=== PATIENT | female | born 1980 | race Caucasian/White ===

== ENCOUNTER 2017-06-05 08:48 | Emergency (ER) | payer OTHER ==
[~2017-06-05] VITALS: Ht 167.6 cm; Wt 102.1 kg
[~2017-06-05 08:48] MED LIST: Bactroban22 GM TOP; CYCL10 PO; ERYT333ERA PO; HYDACE5 PO; HYDACE5325 PO; RXCYCL10 PO; RXHYD5325 PO; RXHYDACE PO; Triamcinolone A15 GM TOP
[2017-06-05 10:05] LABS: Calcium, Ionized (POC) 1.16 mmol/L (1.10-1.46); Chloride (POC) 104 mmol/L (98-108); Creatinine (POC) 0.7 mg/dL (0.6-1.0); Glucose (ISTAT POC) 105 mg/dL (70-99); Hemoglobin (POC) 13.9 g/dL (12.0-16.0); Potassium (POC) 3.7 mmol/L (3.5-5.5); Sodium (POC) 141 mmol/L (135-148); Total CO2 (POC) 24 mmol/L (21-32)
[2017-06-05] MEDS ORDERED: HYDR1TAB94 (10:08)
[2017-12-09] MEDS ORDERED: NEXPLANON68 MG SC (10:14)
[2017-12-09] MEDS ORDERED: LEVSOD150 PO (10:14)
[2017-12-09] MEDS ORDERED: Sudogest60 MG PO (10:15)
[2017-12-09] MEDS ORDERED: Cyclobenzaprine5 MG PO (10:15)
[2017-12-09] MEDS ORDERED: Omeprazole20 M1 PO (10:16)
[2017-12-09] MEDS ORDERED: Zofran4 MG PO (10:16)
[2017-12-09] MEDS ORDERED: VITAMIN D34000 UNIT PO (10:17)
== END 2017-06-05 11:05 | disposition home or self-care (01) ==
LOC: ER 08:48
PROVIDERS: Emergency Medicine
DX: R00.2 Palpitations (principal); F17.200 Nicotine dependence, unspecified, uncomplicated; Z88.0 Allergy status to penicillin
CPT/HCPCS: 36415; 80047; 81000; 81025; 85014; 93005; 93010; 96360; 99283; J7030

== ENCOUNTER 2017-07-05 17:16 | Emergency (ER) | payer OTHER ==
[~2017-07-05] VITALS: Ht 167.6 cm; Wt 113.4 kg
[~2017-07-05 17:16] MED LIST changes: +HYDR1TAB94
[2017-07-05] MEDS ORDERED: THYROID MED (17:41)
[2017-07-05] MEDS ORDERED: CYCL10 PO (18:04)
== END 2017-07-05 18:13 | disposition home or self-care (01) ==
LOC: ER 17:16
DX: M54.5 Low back pain (principal); Z88.0 Allergy status to penicillin; E03.9 Hypothyroidism, unspecified; F17.210 Nicotine dependence, cigarettes, uncomplicated; Z79.899 Other long term (current) drug therapy
CPT/HCPCS: 96372; 99283; J1885

== ENCOUNTER 2017-11-14 22:50 | Emergency (ER) | payer OTHER ==
[~2017-11-14] VITALS: Ht 167.6 cm; Wt 115.7 kg
[~2017-11-14 22:50] MED LIST changes: +THYROID MED
[2017-11-14] MEDS ORDERED: CENTRUM ADULTS1 EACH (23:00)
[2017-11-14] MEDS ORDERED: ASPI81CH PO (23:35)
[2017-11-14] MEDS ORDERED: ERGO400 PO (23:35)
[2017-11-14] MEDS ORDERED: B Complex #11 EACH PO (23:35)
[2017-11-15 00:39] LABS: BASOPHILS ABSOLUTE AUTO 0.08 K/mm3 (0.00-0.23); BASOPHILS PERCENT AUTO 0 % (0-2); EOSINOPHILS ABSOLUTE AUTO 0.36 K/mm3 (0.00-0.68); EOSINOPHILS PERCENT AUTO 2 % (0-6); Hematocrit 40.1 % (33.0-51.0); Hemoglobin 13.4 g/dL (11.5-16.0); IMMATURE GRAN PERCENT AUTO 1 % (0-1); LYMPHOCYTES ABSOLUTE AUTO 4.49 K/mm3 (0.84-5.20); LYMPHOCYTES PERCENT AUTO 25 % (21-46); MONOCYTES ABSOLUTE AUTO 0.88 K/mm3 (0.16-1.47); MONOCYTES PERCENT AUTO 5 % (4-13); Mean Corpuscular HGB 30.1 pg (26.0-34.0); Mean Corpuscular HGB Conc 33.4 g/dL (31.5-36.5); Mean Corpuscular Volume 90 fL (80-100); Mean Platelet Volume 10.3 fL (9.1-12.4); NEUTROPHILS ABSOLUTE AUTO 11.98 K/mm3 (1.96-9.15); NEUTROPHILS PERCENT AUTO 67 % (41-73); Platelet Count 371 K/mm3 (150-400); RDW Coefficient Variation 13.3 % (11.7-14.2); RDW Standard Deviation 43.9 fL (35.1-46.3); Red Blood Cell Count 4.45 M/mm3 (3.80-5.20); White Blood Cell Count 17.89 K/mm3 (4.00-11.30)
[2017-11-15 00:57] LABS: Alanine Aminotransfer (ALT/SGP 54 U/L (12-78); Albumin, Blood 3.2 g/dL (3.4-5.0); Albumin/Globulin Ratio 0.7 (0.8-1.8); Alk Phos 64 U/L (50-136); Anion Gap 9 mmol/L (6-16); Aspartate Aminotrans (AST/SGOT 39 U/L (12-37); Bilirubin, Total 0.4 mg/dL (0.1-1.0); Blood Urea Nitrogen 9 mg/dL (8-24); Bun/Creatinine Ratio 11.3 (12.0-20.0); CO2, Blood 26 mmol/L (21-32); Calcium, Blood 8.7 mg/dL (8.5-10.1); Chloride, Blood 105 mmol/L (98-108); Globulin, Blood 4.5 g/dL (2.2-4.0); Glomerular Filtration Rate >60 (60-); Glucose, Blood 79 mg/dL (70-99); Potassium, Blood 3.7 mmol/L (3.5-5.5); Sodium, Blood 140 mmol/L (136-145); Total Protein, Blood 7.7 g/dL (6.4-8.2)
[2017-11-15 01:50] LABS: Source, Urine Clean Catch
[2017-11-15 01:53] LABS: Bilirubin, Urine Neg (Neg); Blood, Urine 2+ (Neg); Glucose Qualitative, Urine Neg (Neg); Ketones, Urine Neg (Neg); Leukocyte Esterase, Urine 1+ (Neg); Nitrite, Urine Neg (Neg); Protein, Urine Neg (Neg); Urobilinogen, Urine NORM (Normal)
[2017-11-15 01:57] LABS: Appearance, Urine Hazy (Clear); Color, Urine Yellow (P-Yellow)
[2017-11-15 02:08] LABS: Amorphous Light (0-Heavy); Bacteria Rare /hpf; Red Blood Cells, Urine 0-2 /hpf (0-2); Squamous Epithelial Cells Few /hpf (Few); White Blood Cells, Urine 0-2 /hpf (0-5)
[2017-11-15] MEDS ORDERED: IBUP400 PO (05:26)
[2017-11-15] MEDS ORDERED: HYDR1TAB94 PO (05:26)
== END 2017-11-15 05:40 | disposition home or self-care (01) ==
LOC: ER 22:50
PROVIDERS: Emergency Medicine
DX: R10.9 Unspecified abdominal pain (principal); Z88.0 Allergy status to penicillin; Z79.899 Other long term (current) drug therapy; Z79.82 Long term (current) use of aspirin; F17.200 Nicotine dependence, unspecified, uncomplicated
CPT/HCPCS: 36415; 71046; 74177; 80053; 81001; 81025; 83690; 85025; 87086; 99284-25; Q9967

== ENCOUNTER → 2017-11-16 | Outpatient (CLI) | payer OTHER ==
[~2017-11-16] MED LIST changes: +ASPI81CH PO; +B Complex #11 EACH PO; +CENTRUM ADULTS1 EACH; +ERGO400 PO; +HYDR1TAB94 PO; +IBUP400 PO
== END ==
LOC: LAB SHORT 12:30 → LAB 12:30
DX: K92.1 Melena (principal); R10.9 Unspecified abdominal pain
CPT/HCPCS: 87338

== ENCOUNTER 2017-12-17 12:56 | Day surgery (SDC) | payer OTHER ==
[~2017-12-17] VITALS: Ht 167.6 cm; Wt 120.0 kg
[~2017-12-17 12:56] MED LIST changes: +Cyclobenzaprine5 MG PO; +LEVSOD150 PO; +NEXPLANON68 MG SC; +Omeprazole20 M1 PO; +Sudogest60 MG PO; +VITAMIN D34000 UNIT PO; +Zofran4 MG PO
== END 2017-12-17 15:37 | disposition home or self-care (01) ==
LOC: ORSCSDS 12:56
PROVIDERS: Student in an Organized Health Care Education/Training Program
PROC: 0DBB8ZX Excision of Ileum, Via Natural or Artificial Opening Endoscopic, Diagnostic (ICD-10-PCS; principal; 2017-12-17 14:30)
PROC: 0DB68ZX Excision of Stomach, Via Natural or Artificial Opening Endoscopic, Diagnostic (ICD-10-PCS; principal; 2017-12-17 14:30)
PROC: 0DBE8ZX Excision of Large Intestine, Via Natural or Artificial Opening Endoscopic, Diagnostic (ICD-10-PCS; principal; 2017-12-17 14:30)
PROC: 0DB98ZX Excision of Duodenum, Via Natural or Artificial Opening Endoscopic, Diagnostic (ICD-10-PCS; principal; 2017-12-17 14:30)
DX: K92.1 Melena (principal); K29.70 Gastritis, unspecified, without bleeding; R19.4 Change in bowel habit; R10.9 Unspecified abdominal pain; R11.0 Nausea; E03.9 Hypothyroidism, unspecified; F17.210 Nicotine dependence, cigarettes, uncomplicated; E66.9 Obesity, unspecified; Z68.41 Body mass index [BMI] 40.0-44.9, adult; Z79.899 Other long term (current) drug therapy
CPT/HCPCS: 88305; 88342; J7120

== ENCOUNTER 2019-01-13 17:22 | Emergency (ER) | payer OTHER ==
[~2019-01-13] VITALS: Ht 167.6 cm; Wt 117.5 kg
== END 2019-01-13 18:54 | disposition home or self-care (01) ==
LOC: ER 17:22
DX: S93.401A Sprain of unspecified ligament of right ankle, initial encounter (principal); S60.512A Abrasion of left hand, initial encounter; M25.532 Pain in left wrist; R03.0 Elevated blood-pressure reading, without diagnosis of hypertension; K21.9 Gastro-esophageal reflux disease without esophagitis; E03.9 Hypothyroidism, unspecified; F17.200 Nicotine dependence, unspecified, uncomplicated; Z88.0 Allergy status to penicillin; Z79.899 Other long term (current) drug therapy; W10.8XXA Fall (on) (from) other stairs and steps, initial encounter
CPT/HCPCS: 73110; 73610; 99283-25

== ENCOUNTER 2020-02-11 19:53 | Emergency (ER) | payer OTHER ==
[~2020-02-11] VITALS: Ht 167.6 cm; Wt 126.5 kg
[~2020-02-11 19:53] MED LIST changes: +OMEPRAZOLE MAGN20 MG PO; +ONDA4ODT SL; +Synthroid200 MCG PO
== END 2020-02-11 22:37 | disposition home or self-care (01) ==
LOC: ER 19:53
DX: S89.92XA Unspecified injury of left lower leg, initial encounter (principal); E03.9 Hypothyroidism, unspecified; K21.9 Gastro-esophageal reflux disease without esophagitis; F17.210 Nicotine dependence, cigarettes, uncomplicated; Z88.0 Allergy status to penicillin; Z79.3 Long term (current) use of hormonal contraceptives; Z79.899 Other long term (current) drug therapy; X58.XXXA Exposure to other specified factors, initial encounter; Y93.89 Activity, other specified
CPT/HCPCS: 73562-LT; 99283-25

== ENCOUNTER 2020-07-12 19:57 | Emergency (ER) | payer OTHER ==
[~2020-07-12] VITALS: Ht 167.6 cm; Wt 122.5 kg
[2020-07-12] MEDS ORDERED: CEPH500 PO (20:52)
== END 2020-07-12 21:00 | disposition home or self-care (01) ==
LOC: ER 19:57
DX: S61.032A Puncture wound without foreign body of left thumb without damage to nail, initial encounter (principal); E03.9 Hypothyroidism, unspecified; K21.9 Gastro-esophageal reflux disease without esophagitis; F17.210 Nicotine dependence, cigarettes, uncomplicated; Z88.0 Allergy status to penicillin; Z79.3 Long term (current) use of hormonal contraceptives; Z79.899 Other long term (current) drug therapy; W26.0XXA Contact with knife, initial encounter
CPT/HCPCS: 99283; A9270-GY

== ENCOUNTER 2021-03-06 15:01 | Emergency (ER) | payer OTHER ==
[~2021-03-06] VITALS: Ht 167.6 cm; Wt 124.7 kg
[~2021-03-06 15:01] MED LIST changes: +CEPH500 PO
[2021-03-06] MEDS ORDERED: Amitriptyline H10 MG PO (15:12)
== END 2021-03-06 16:00 | disposition home or self-care (01) ==
LOC: ER 15:01
DX: M54.42 Lumbago with sciatica, left side (principal); F17.210 Nicotine dependence, cigarettes, uncomplicated; Z88.0 Allergy status to penicillin
CPT/HCPCS: 96372; 99283-25; A9270; J1885

== ENCOUNTER 2021-07-27 19:30 | Emergency (ER) | payer OTHER ==
[~2021-07-27] VITALS: Ht 167.6 cm; Wt 128.4 kg
[~2021-07-27 19:30] MED LIST changes: +Amitriptyline H10 MG PO
[2021-07-27] MEDS ORDERED: CIPHYDOTSU LEFTEAR (19:59)
== END 2021-07-27 20:16 | disposition home or self-care (01) ==
LOC: ER 19:30
DX: H60.92 Unspecified otitis externa, left ear (principal); F17.210 Nicotine dependence, cigarettes, uncomplicated
CPT/HCPCS: 99282; A9270

== ENCOUNTER → 2021-10-03 | Outpatient (CLI) | payer OTHER ==
[~2021-10-03] MED LIST changes: +CIPHYDOTSU LEFTEAR
[2021-10-08 15:08] LABS: HPV 16 Negative (Negative); HPV 18 Negative (Negative); HPV OTHER HR TYPES Negative (Negative)
== END | disposition home or self-care (01) ==
LOC: LAB 12:35 → LAB SHORT 12:35
PROVIDERS: Obstetrics & Gynecology
DX: Z12.4 Encounter for screening for malignant neoplasm of cervix (principal)
CPT/HCPCS: 87624; G0123

== ENCOUNTER 2021-11-11 06:54 | Day surgery (SDC) | payer OTHER ==
[~2021-11-11] VITALS: Ht 167.6 cm; Wt 124.8 kg
[2021-11-11] MEDS ORDERED: NAPR500 PO (08:02)
[2021-11-11] MEDS ORDERED: Cyclobenzaprine5 MG PO (08:03)
--- NOTE | 2021-11-11 09:16 | NUR ---
11/11/21 0916 Bubba Kaye ABDOMEN PREPPED WITH DURAPREP BY [facility].JJW 0.1ML OF EPI 1MG/ML ADDED TO 20ML OF ROPIVICAINE 0.2% TO CREATE A SOLUTION OF ROPIVICAINE 0.2% WITH EPI 1:200,000.
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
== END 2021-11-11 10:45 | disposition home or self-care (01) ==
LOC: ORSCSDS 06:54
PROVIDERS: Obstetrics & Gynecology
PROC: 0UT74ZZ Resection of Bilateral Fallopian Tubes, Percutaneous Endoscopic Approach (ICD-10-PCS; principal; 2021-11-11 08:30)
PROC: 0TBB4ZZ Excision of Bladder, Percutaneous Endoscopic Approach (ICD-10-PCS; principal; 2021-11-11 08:30)
DX: Z30.2 Encounter for sterilization (principal); N83.202 Unspecified ovarian cyst, left side; G47.33 Obstructive sleep apnea (adult) (pediatric); F17.210 Nicotine dependence, cigarettes, uncomplicated; E66.01 Morbid (severe) obesity due to excess calories; Z68.41 Body mass index [BMI] 40.0-44.9, adult; E03.9 Hypothyroidism, unspecified; F32.A Depression, unspecified; Z79.899 Other long term (current) drug therapy
CPT/HCPCS: 88302; A9270; J0171; J1100; J2405; J2704; J2710; J2765; J2795; J3010

== ENCOUNTER 2021-11-20 17:04 | Emergency (ER) | payer OTHER ==
[~2021-11-20] VITALS: Ht 167.6 cm; Wt 124.7 kg
[~2021-11-20 17:04] MED LIST changes: +NAPR500 PO
== END 2021-11-20 21:03 | disposition left against medical advice (07) ==
LOC: ER 17:04
DX: R51.9 Headache, unspecified (principal); R50.9 Fever, unspecified; Z53.21 Procedure and treatment not carried out due to patient leaving prior to being seen by health care provider
CPT/HCPCS: 99281

== ENCOUNTER 2022-05-15 16:51 | Emergency (ER) | payer OTHER ==
[~2022-05-15] VITALS: Ht 167.6 cm; Wt 126.1 kg
[2022-05-15] MEDS ORDERED: PERCOCET 10-321 EA10 PO (20:17)
[2022-05-15] MEDS ORDERED: ONDA4ODT MM (20:17)
[2022-05-15] MEDS ORDERED: Cleocin HCl150 MG PO (20:19)
== END 2022-05-15 20:23 | disposition home or self-care (01) ==
LOC: ER 16:51
DX: K08.89 Other specified disorders of teeth and supporting structures (principal); E03.9 Hypothyroidism, unspecified; F17.210 Nicotine dependence, cigarettes, uncomplicated; Z88.0 Allergy status to penicillin; Z79.899 Other long term (current) drug therapy
CPT/HCPCS: 99282; A9270

== ENCOUNTER 2022-06-11 04:05 | Emergency (ER) | payer OTHER ==
[~2022-06-11] VITALS: Ht 167.6 cm; Wt 126.1 kg
[~2022-06-11 04:05] MED LIST changes: +Cleocin HCl150 MG PO; +ONDA4ODT MM; +PERCOCET 10-321 EA10 PO
[2022-06-11 07:23] LABS: Albumin, Blood 3.3 g/dL (3.4-5.0); Albumin/Globulin Ratio 0.7 (0.8-1.8); Bilirubin, Total 0.4 mg/dL (0.1-1.0); Bun/Creatinine Ratio 12.1 (12.0-20.0); Creatinine, Blood 0.75 mg/dL (0.40-1.00); Globulin, Blood 4.5 g/dL (2.2-4.0); Total Protein, Blood 7.8 g/dL (6.4-8.2)
[2022-06-11 08:11] LABS: BASOPHILS ABSOLUTE AUTO 0.09 K/mm3 (0.00-0.23); BASOPHILS PERCENT AUTO 1 % (0-2); EOSINOPHILS ABSOLUTE AUTO 0.55 K/mm3 (0.00-0.68); EOSINOPHILS PERCENT AUTO 4 % (0-6); Hematocrit 38.4 % (33.0-51.0); Hemoglobin 12.5 g/dL (11.5-16.0); IMMATURE GRAN ABSOLUTE AUTO 0.08 K/mm3 (0.00-0.10); IMMATURE GRAN PERCENT AUTO 1 % (0-1); LYMPHOCYTES ABSOLUTE AUTO 4.36 K/mm3 (0.84-5.20); LYMPHOCYTES PERCENT AUTO 31 % (21-46); MONOCYTES ABSOLUTE AUTO 0.83 K/mm3 (0.16-1.47); MONOCYTES PERCENT AUTO 6 % (4-13); Mean Corpuscular HGB 30.7 pg (26.0-34.0); Mean Corpuscular HGB Conc 32.6 g/dL (31.5-36.5); Mean Corpuscular Volume 94 fL (80-100); Mean Platelet Volume 10.1 fL (9.1-12.4); NEUTROPHILS ABSOLUTE AUTO 7.98 K/mm3 (1.96-9.15); NEUTROPHILS PERCENT AUTO 57 % (41-73); Platelet Count 341 K/mm3 (150-400); RDW Coefficient Variation 13.2 % (11.7-14.2); RDW Standard Deviation 45.4 fL (35.1-46.3); Red Blood Cell Count 4.07 M/mm3 (3.80-5.20); White Blood Cell Count 13.89 K/mm3 (4.00-11.30)
[2022-06-11 08:21] LABS: Source, Urine Clean Catch
[2022-06-11 08:24] LABS: Appearance, Urine Hazy (Clear); Bilirubin, Urine Neg (Neg); Blood, Urine 4+ (Neg); Color, Urine Yellow (P-Yellow); Glucose Qualitative, Urine Neg (Neg); Ketones, Urine Neg (Neg); Leukocyte Esterase, Urine 3+ (Neg); Nitrite, Urine Pos (Neg); Protein, Urine 2+ (Neg); Urobilinogen, Urine NORM (Normal)
[2022-06-11 08:51] LABS: Bacteria Mod /hpf; Squamous Epithelial Cells Rare /hpf (Few)
[2022-06-11] MEDS ORDERED: IBUP800 PO (09:04)
[2022-06-11] MEDS ORDERED: Macrobid 100 M100 MG PO (09:04)
== END 2022-06-11 09:31 | disposition home or self-care (01) ==
LOC: ER 04:05
PROVIDERS: Emergency Medicine; Student in an Organized Health Care Education/Training Program
DX: N39.0 Urinary tract infection, site not specified (principal); N23 Unspecified renal colic; E03.9 Hypothyroidism, unspecified; F17.210 Nicotine dependence, cigarettes, uncomplicated; Z88.0 Allergy status to penicillin; Z79.890 Hormone replacement therapy
CPT/HCPCS: 74177; 80053; 81001; 84703; 85025; 87077; 87086; 87186; 96374-59; 99284-25; J1885; J7030; Q9967

== ENCOUNTER → 2024-07-05 | Outpatient (CLI) | payer OTHER ==
[~2024-07-05] MED LIST changes: +IBUP800 PO; +Macrobid 100 M100 MG PO
[2024-07-05 08:52] LABS: Source, Urine Clean Catch
[2024-07-05 10:10] LABS: Appearance, Urine Clear (Clear); Bilirubin, Urine Neg (Neg); Blood, Urine 2+ (Neg); Color, Urine Yellow (P-Yellow); Glucose Qualitative, Urine Neg (Neg); Ketones, Urine Neg (Neg); Leukocyte Esterase, Urine 3+ (Neg); Nitrite, Urine Neg (Neg); Protein, Urine 1+ (Neg); Specific Gravity, Urine 1.015 (1.003-1.022); Urobilinogen, Urine NORM (Normal)
[2024-07-05 10:26] LABS: Bacteria Many /hpf; Squamous Epithelial Cells Many /hpf (Few); White Blood Cells, Urine 25-50 /hpf (0-5)
== END ==
LOC: LAB 08:50 → LAB SHORT 08:50
PROVIDERS: Family Medicine
DX: R10.9 Unspecified abdominal pain (principal)
CPT/HCPCS: 81001; 87086

== ENCOUNTER → 2024-08-22 | Outpatient (CLI) | payer OTHER ==
[2024-08-22 18:26] LABS: BASOPHILS ABSOLUTE AUTO 0.09 K/mm3 (0.00-0.23); BASOPHILS PERCENT AUTO 1 % (0-2); EOSINOPHILS ABSOLUTE AUTO 0.32 K/mm3 (0.00-0.68); EOSINOPHILS PERCENT AUTO 2 % (0-6); Hematocrit 44.3 % (33.0-51.0); Hemoglobin 14.8 g/dL (11.5-16.0); IMMATURE GRAN ABSOLUTE AUTO 0.06 K/mm3 (0.00-0.10); IMMATURE GRAN PERCENT AUTO 0 % (0-1); LYMPHOCYTES ABSOLUTE AUTO 3.14 K/mm3 (0.84-5.20); LYMPHOCYTES PERCENT AUTO 24 % (21-46); MONOCYTES ABSOLUTE AUTO 0.52 K/mm3 (0.16-1.47); MONOCYTES PERCENT AUTO 4 % (4-13); Mean Corpuscular HGB 30.8 pg (26.0-34.0); Mean Corpuscular HGB Conc 33.4 g/dL (31.5-36.5); Mean Corpuscular Volume 92 fL (80-100); Mean Platelet Volume 10.5 fL (9.1-12.4); NEUTROPHILS ABSOLUTE AUTO 9.26 K/mm3 (1.96-9.15); NEUTROPHILS PERCENT AUTO 69 % (41-73); Platelet Count 372 K/mm3 (150-400); RDW Coefficient Variation 13.1 % (11.7-14.2); RDW Standard Deviation 44.1 fL (35.1-46.3); Red Blood Cell Count 4.81 M/mm3 (3.80-5.20); White Blood Cell Count 13.39 K/mm3 (4.00-11.30)
[2024-08-22 18:49] LABS: Albumin, Blood 3.7 g/dL (3.4-5.0); Albumin/Globulin Ratio 0.8 (0.8-1.8); Bilirubin, Total 0.5 mg/dL (0.1-1.0); Bun/Creatinine Ratio 11.1 (12.0-20.0); Calcium, Blood 9.4 mg/dL (8.5-10.1); Creatinine, Blood 0.9 mg/dL (0.40-1.00); Globulin, Blood 4.7 g/dL (2.2-4.0); Potassium, Blood 3.8 mmol/L (3.5-5.5); Total Protein, Blood 8.4 g/dL (6.4-8.2)
== END ==
LOC: LAB SHORT 18:12 → LAB 18:12
PROVIDERS: Family Medicine
DX: R10.11 Right upper quadrant pain (principal)
CPT/HCPCS: 80053; 85025